=== PATIENT | male | born 1955 | race Caucasian/White ===

== ENCOUNTER 2024-05-03 12:40 | Emergency (ER) | payer OTHER ==
[~2024-05-03] VITALS: Ht 165.1 cm; Wt 60.0 kg
[2024-05-03 12:42] VITALS: O2SAT 99
[2024-05-03] MEDS: TETRACAINE 0.5% OPHTH DROPS 4ML BOTHEYE ONE (13:14)
[2024-05-03 15:17] LABS: BASOPHILS % 0.5 % (0.0-2.0); EOSINOPHILS % 12.2 % (0.0-5.0); HEMATOCRIT. 37.4 % (42.0-52.0); HEMOGLOBIN. 12.6 g/dL (14.0-18.0); LYMPHOCYTES % 38.2 % (20.0-50.0); MEAN CORPUSCULAR HEMOGLOBIN 30.2 pg (28.0-32.0); MEAN CORPUSCULAR HGB CONC 33.6 g/dL (31.0-37.0); MEAN CORPUSCULAR VOLUME 89.9 fL (80.0-94.0); MEAN PLATELET VOLUME 7.9 fl (7.4-10.4); NEUTROPHILS % 42.1 % (40.0-76.0); PLATELET 174 x1000/uL (130-400); RED BLOOD CELL COUNT 4.16 mill/uL (4.7-6.1); RED CELL DISTRIBUTION WIDTH 15.2 % (11.6-14.6); WHITE BLOOD COUNT 9.7 x1000/uL (4.5-11.0)
[2024-05-03] MEDS ORDERED: DORZ10DR8 EACHEYE (15:21)
[2024-05-03] MEDS ORDERED: TIMO5DRO40 EACHEYE (15:21)
[2024-05-03 15:29] LABS: CHLORIDE 98 mEq/L (98-107); SODIUM 129 mEq/L (136-145)
[2024-05-03 15:30] LABS: CALCIUM 9.3 mg/dL (8.7-10.4); CARBON DIOXIDE 22 mEq/L (21-32)
[2024-05-03 15:35] LABS: GLUCOSE 100 mg/dL (70-105)
[2024-05-03 15:46] LABS: TROPONIN I HIGH SENSITIVITY < 4 ng/L (3.0-53); UREA NITROGEN BLOOD < 5 mg/dL (9-23)
[2024-05-03 16:08] VITALS: BP 145/86; PULSE 78; RESP 18; TEMP 98.4
== END 2024-05-03 17:44 | disposition home or self-care (01) ==
LOC: ER 12:40
DX: H40.9 Unspecified glaucoma (principal); E11.9 Type 2 diabetes mellitus without complications; I10 Essential (primary) hypertension
CPT/HCPCS: 36415; 71045; 80048; 83880; 84484; 85025; 93005; 99285

== ENCOUNTER 2024-09-18 14:34 | Inpatient (IN) | payer OTHER ==
[~2024-09-18] VITALS: Ht 160 cm; Wt 60.3 kg
[~2024-09-18 14:34] MED LIST: DORZ10DR8 EACHEYE; TIMO5DRO40 EACHEYE
[2024-09-18] MEDS: SODIUM CHLORIDE 0.9% 1,000 ML IV ONE (15:26)
[2024-09-18 15:40] LABS: BASOPHILS % 0.7 % (0.0-2.0); CLARITY URINE CLEAR (CLEAR); COLOR URINE YELLOW (YELLOW); EOSINOPHILS % 11.4 % (0.0-5.0); GLUCOSE URINE NEGATIVE (NEGATIVE); HEMATOCRIT. 36.3 % (42.0-52.0); HEMOGLOBIN. 11.7 g/dL (14.0-18.0); KETONES URINE NEGATIVE (NEGATIVE); LEUKOCYTE ESTERASE URINE TRACE (NEGATIVE); LYMPHOCYTES % 40.7 % (20.0-50.0); MEAN CORPUSCULAR HEMOGLOBIN 29.9 pg (28.0-32.0); MEAN CORPUSCULAR HGB CONC 32.2 g/dL (31.0-37.0); MEAN CORPUSCULAR VOLUME 92.7 fL (80.0-94.0); MEAN PLATELET VOLUME 9.3 fl (7.4-10.4); MONOCYTES % 9.2 % (2.0-8.0); NITRITE URINE NEGATIVE (NEGATIVE); OCCULT BLOOD URINE NEGATIVE (NEGATIVE); PLATELET 160 x1000/uL (130-400); PROTEIN URINE NEGATIVE (NEGATIVE); RED BLOOD CELL COUNT 3.92 mill/uL (4.7-6.1); RED CELL DISTRIBUTION WIDTH 14.8 % (11.6-14.6); SPECIFIC GRAVITY URINE 1.006 (1.005-1.030); UROBILINOGEN URINE 0.2 E.U./dL (0.2-1.0); WHITE BLOOD COUNT 6.4 x1000/uL (4.5-11.0)
[2024-09-18 15:44] LABS: CHLORIDE 103 mEq/L (98-107); POTASSIUM 3.7 mEq/L (3.5-5.1); SODIUM 134 mEq/L (136-145)
[2024-09-18 15:45] LABS: CALCIUM 9.1 mg/dL (8.7-10.4); CARBON DIOXIDE 23 mEq/L (21-32)
[2024-09-18 15:47] LABS: PROTHROMBIN TIME 11.4 sec (9.6-11.0)
[2024-09-18 15:50] LABS: CREATININE 1.2 mg/dL (0.6-1.3); GLUCOSE 105 mg/dL (70-105); UREA NITROGEN BLOOD 7 mg/dL (9-23)
[2024-09-18 15:52] LABS: ALANINE AMINOTRANSFERASE 43 IU/L (10-49); ALBUMIN 4.4 g/dL (3.2-4.8); ASPARTATE AMINOTRANSFERASE 44 IU/L (<34); BILIRUBIN DIRECT 0.1 mg/dL (<=3.0); BILIRUBIN TOTAL 0.3 mg/dL (0.1-1.0)
[2024-09-18 15:53] LABS: PROTEIN TOTAL 8.2 g/dL (6.0-8.3)
[2024-09-18 15:55] LABS: SQUAMOUS EPITHELIAL CELL URINE FEW /lpf (RARE/1+)
[2024-09-18 15:56] LABS: BACTERIA URINE TRACE; RBC URINE 0-2 /hpf (0-2); WBC URINE 0-2 /hpf (0-2)
[2024-09-18 16:04] LABS: TROPONIN I HIGH SENSITIVITY < 4 ng/L (3.0-53)
[2024-09-18] MEDS ORDERED: ASPIRIN 81MG TABLET PO ONE (17:15)
[2024-09-18] MEDS: HYDRALAZINE 20MG/ML VIAL IV PRN (22:09)
[2024-09-18 23:06] VITALS: BP 121/76; PULSE 77; RESP 18; TEMP 37.0852
[2024-09-19 00:10] LABS: CREATINE KINASE MB FRACTION 1.5 ng/mL (0.5-3.6)
[2024-09-19 00:13] LABS: CREATINE KINASE 110 IU/L (46-171)
[2024-09-19 00:22] LABS: TROPONIN I HIGH SENSITIVITY < 4 ng/L (3.0-53)
[2024-09-19 04:00] VITALS: BP 122/65; PULSE 78; RESP 18; TEMP 36.9474; O2SAT 98
[2024-09-19 08:00] VITALS: BP 116/91; PULSE 55; RESP 16; TEMP 36.78072; O2SAT 100
[2024-09-19 09:09] LABS: BASOPHILS % 0.7 % (0.0-2.0); EOSINOPHILS % 7.1 % (0.0-5.0); HEMATOCRIT. 34.2 % (42.0-52.0); HEMOGLOBIN. 11.4 g/dL (14.0-18.0); LYMPHOCYTES % 36.8 % (20.0-50.0); MEAN CORPUSCULAR HEMOGLOBIN 29.8 pg (28.0-32.0); MEAN CORPUSCULAR HGB CONC 33.3 g/dL (31.0-37.0); MEAN CORPUSCULAR VOLUME 89.3 fL (80.0-94.0); MEAN PLATELET VOLUME 9.4 fl (7.4-10.4); NEUTROPHILS % 49.4 % (40.0-76.0); PLATELET 160 x1000/uL (130-400); RED BLOOD CELL COUNT 3.83 mill/uL (4.7-6.1); RED CELL DISTRIBUTION WIDTH 14.5 % (11.6-14.6); WHITE BLOOD COUNT 6.4 x1000/uL (4.5-11.0)
[2024-09-19 09:14] LABS: POTASSIUM 3.8 mEq/L (3.5-5.1)
[2024-09-19 09:15] LABS: CALCIUM 8.9 mg/dL (8.7-10.4)
[2024-09-19 09:20] LABS: CREATININE 1.2 mg/dL (0.6-1.3)
[2024-09-19 09:22] LABS: CREATINE KINASE 99 IU/L (46-171)
[2024-09-19 09:25] LABS: THYROID STIMULATING HORMONE 2.3 uIU/mL (0.55-4.78)
[2024-09-19] MEDS ORDERED: DEXTROSE 50% WATER 50ML SYRINGE IV PRN (09:30)
[2024-09-19] MEDS: ACETAMINOPHEN 325MG TABLET PO PRN (09:48)
[2024-09-19 10:15] LABS: TROPONIN I HIGH SENSITIVITY < 4 ng/L (3.0-53)
[2024-09-19 11:31] LABS: *AMPHETAMINES SCREEN URINE NEGATIVE (NEGATIVE); *BARBITURATES SCREEN URINE NEGATIVE (NEGATIVE); *BENZODIAZEPINES SCREEN URINE NEGATIVE (NEGATIVE); *COCAINE SCREEN URINE NEGATIVE (NEGATIVE); CANNABINOID URINE SCREEN NEGATIVE (NEGATIVE); ECSTASY MDMA SCREEN URINE NEGATIVE (NEGATIVE); METHADONE URINE SCREEN NEGATIVE (NEGATIVE); OPIATES URINE SCREEN NEGATIVE (NEGATIVE); PHENCYCLIDINE URINE SCREEN NEGATIVE (NEGATIVE)
[2024-09-19] MEDS: BLOOD SUGAR DIAGNOSTIC STRIP TEST SCH (11:50)
[2024-09-19 12:00] VITALS: BP 128/73; PULSE 53; RESP 20; TEMP 36.83628; O2SAT 99
[2024-09-19] MEDS: INSULIN LISPRO 100 UNITS/ML SUBCUT SCH (13:23)
[2024-09-19] MEDS ORDERED: CYAN1TAB18 PO (14:11)
[2024-09-19] MEDS ORDERED: PANT40TA51 MT (14:11)
[2024-09-19] MEDS ORDERED: SENN-371 MT (14:11)
[2024-09-19] MEDS ORDERED: ATOR40TA70 MT (14:11)
[2024-09-19] MEDS ORDERED: CLOP75TA33 MT (14:11)
[2024-09-19] MEDS ORDERED: CETI5TAB5 MT (14:11)
[2024-09-19] MEDS ORDERED: MEMA5TAB16 MT (14:11)
[2024-09-19] MEDS ORDERED: LISI-186 MT (14:11)
[2024-09-19] MEDS ORDERED: DONE-53 MT (14:11)
[2024-09-19] MEDS ORDERED: PREG200C29 PO (14:11)
[2024-09-19] MEDS ORDERED: FAMO20TA8 MT (14:11)
[2024-09-19] MEDS ORDERED: METO-396 MT (14:15)
[2024-09-19] MEDS ORDERED: TAMS-11 MT (14:15)
[2024-09-19] MEDS ORDERED: METF-414 MT (14:15)
[2024-09-19] MEDS ORDERED: LEVO75TA7 MT (14:15)
[2024-09-19 16:00] VITALS: BP_SYST 136; BP_SYST 145; BP_SYST 159; BP_DIAS 75; BP_DIAS 84; BP_DIAS 86; PULSE 55; RESP 14; TEMP 36.72516; O2SAT 99
[2024-09-19] MEDS: SENNOSIDES 8.6MG TABLET PO SCH (20:43)
[2024-09-19] MEDS: FAMOTIDINE 20MG TABLET PO SCH (20:43)
[2024-09-19] MEDS: MEMANTINE HCL 5MG TABLET PO SCH (20:44)
[2024-09-19] MEDS: METFORMIN HCL 500MG TABLET PO SCH (20:44)
[2024-09-19] MEDS: ATORVASTATIN CALCIUM 40MG TABLET PO SCH (20:53)
[2024-09-19] MEDS ORDERED: TIMOLOL MALEATE 0.5% OPHTH DROPS 5ML EACHEYE SCH (21:00)
[2024-09-19] MEDS ORDERED: DORZOLAMIDE 2% OPHTH 10 ML BOTTLE EACHEYE SCH (21:00)
[2024-09-19] MEDS: ZOLPIDEM TARTRATE 5MG TABLET PO PRN (22:48)
[2024-09-20] VITALS: BP_SYST 112; BP_SYST 142; BP_SYST 152; BP_DIAS 136; BP_DIAS 138; BP_DIAS 167; PULSE 85; RESP 8; TEMP 36.89184; O2SAT 98
[2024-09-20 04:00] VITALS: BP_SYST 134; BP_SYST 135; BP_SYST 148; BP_DIAS 109; BP_DIAS 72; BP_DIAS 90; PULSE 85; RESP 15; TEMP 36.89184; O2SAT 98
[2024-09-20 06:52] LABS: CALCIUM 9.3 mg/dL (8.7-10.4); CARBON DIOXIDE 22 mEq/L (21-32); CHLORIDE 99 mEq/L (98-107); POTASSIUM 3.4 mEq/L (3.5-5.1); SODIUM 130 mEq/L (136-145)
[2024-09-20 06:58] LABS: GLUCOSE 126 mg/dL (70-105); UREA NITROGEN BLOOD 9 mg/dL (9-23)
[2024-09-20 07:01] LABS: BASOPHILS % 0.5 % (0.0-2.0); EOSINOPHILS % 7.1 % (0.0-5.0); HEMATOCRIT. 34.9 % (42.0-52.0); HEMOGLOBIN. 11.8 g/dL (14.0-18.0); LYMPHOCYTES % 34.8 % (20.0-50.0); MEAN CORPUSCULAR HEMOGLOBIN 29.9 pg (28.0-32.0); MEAN CORPUSCULAR HGB CONC 33.7 g/dL (31.0-37.0); MEAN CORPUSCULAR VOLUME 88.9 fL (80.0-94.0); MEAN PLATELET VOLUME 9.5 fl (7.4-10.4); MONOCYTES % 7.2 % (2.0-8.0); NEUTROPHILS % 50.4 % (40.0-76.0); PLATELET 153 x1000/uL (130-400); RED BLOOD CELL COUNT 3.93 mill/uL (4.7-6.1); RED CELL DISTRIBUTION WIDTH 14.3 % (11.6-14.6); THYROID STIMULATING HORMONE 3.74 uIU/mL (0.55-4.78); WHITE BLOOD COUNT 8.5 x1000/uL (4.5-11.0)
[2024-09-20 07:35] LABS: TROPONIN I HIGH SENSITIVITY < 4 ng/L (3.0-53)
[2024-09-20] MEDS: TAMSULOSIN HCL 0.4MG SR CAPSULE PO SCH (08:45)
[2024-09-20] MEDS: POTASSIUM CHLORIDE 20MEQ TABLET SR PO SCH (08:45)
[2024-09-20] MEDS: LEVOTHYROXINE SODIUM 75MCG TABLET PO SCH (08:45)
[2024-09-20] MEDS: LISINOPRIL 5MG TABLET PO SCH (08:46)
[2024-09-20] MEDS: CLOPIDOGREL 75MG TABLET PO SCH (08:46)
[2024-09-20 08:48] VITALS: BP_SYST 152; BP_SYST 159; BP_SYST 167; BP_DIAS 78; BP_DIAS 87; BP_DIAS 92; PULSE 67; RESP 17; TEMP 36.9474; O2SAT 100
[2024-09-20] MEDS: MAGNESIUM 2 G PREMIX 50 ML IV SCH (10:54)
[2024-09-20 12:00] VITALS: BP 145/97; PULSE 73; RESP 16; TEMP 36.78072; O2SAT 100
[2024-09-20 16:00] VITALS: BP 138/74; PULSE 77; RESP 18; TEMP 36.55848; O2SAT 99
[2024-09-20] MEDS: MAGNESIUM OXIDE 400MG TABLET PO SCH (16:53)
[2024-09-20 20:00] VITALS: BP 140/96; PULSE 87; RESP 14; TEMP 36.6696; O2SAT 98
[2024-09-21 00:13] VITALS: BP 168/93; PULSE 73; RESP 20; TEMP 36.72516; O2SAT 98
[2024-09-21 04:09] VITALS: BP 156/84; PULSE 92; RESP 18; TEMP 36.72516; O2SAT 100
[2024-09-21 04:10] VITALS: BP 138/81; PULSE 80; RESP 21; O2SAT 100
[2024-09-21 04:12] VITALS: BP 117/75; PULSE 88; RESP 18; O2SAT 100
[2024-09-21 08:00] VITALS: BP_SYST 144; BP_SYST 148; BP_SYST 152; BP_DIAS 81; BP_DIAS 84; BP_DIAS 91; PULSE 100; RESP 19; TEMP 36.72516; O2SAT 92
[2024-09-21 09:23] VITALS: BP 152/91; PULSE 100; TEMP 98.1; O2SAT 99
== END 2024-09-21 11:24 | disposition home or self-care (01) | DRG 74 ==
LOC: ER 14:34 → 5WST 18:39 → EDBEDREQTM 18:44 → EDBEDREQ 18:44 → 3WST 22:20
PROVIDERS: ADMIT Internal Medicine; ATTEND Internal Medicine
DX: G90.89 Other disorders of autonomic nervous system (principal); D72.10 Eosinophilia, unspecified; G93.89 Other specified disorders of brain; I10 Essential (primary) hypertension; E11.9 Type 2 diabetes mellitus without complications; R00.1 Bradycardia, unspecified; E87.6 Hypokalemia; E83.42 Hypomagnesemia; E78.00 Pure hypercholesterolemia, unspecified; I25.2 Old myocardial infarction; Z87.891 Personal history of nicotine dependence; Z86.73 Personal history of transient ischemic attack (TIA), and cerebral infarction without residual deficits; Z79.899 Other long term (current) drug therapy; Z79.84 Long term (current) use of oral hypoglycemic drugs; Z79.02 Long term (current) use of antithrombotics/antiplatelets
CPT/HCPCS: 36415; 71045; 80048; 80061; 80076; 80305; 81003; 82550; 82553; 82962; 83036; 83735; 84443; 84484; 85025; 93005; 93306; 93880; 97161; 99291; A4606; J0360; J1815